=== PATIENT | female | born 1950 | race Caucasian/White ===

== ENCOUNTER → 2016-12-28 | Outpatient (CLI) | payer OTHER ==
[2014-02-10 18:17] VITALS: BP 127/75
--- NOTE | 2016-12-29 09:20 | MG ---
HISTORY: SCREENING Comparison: 10/05/2011, 06/10/2010 FINDINGS: Bilateral CC and MLO projections of the right and left breast were obtained. Scattered fibroglandul ar tissue is seen to be present. There is a new small cluster of microcalcifications seen in the ce ntral right breast, middle depth on today's exam marked with arrows. This corresponding mass, jacquelyn ectural distortion is identified. No skin thickening or nipple retraction is appreciated. No patho logical lymphadenopathy can be identified. IMPRESSION: There is a small new cluster of microcalcifications seen in the central right breast, m iddle depth, on today's exam for which further evaluation with magnification views is recommended. ACR CATEGORY 0: Assessment incomplete; additional imaging is needed Diagnostic CAD was utilized and reviewed. * 0 (ZERO) - ASSESSMENT INCOMPLETE; ADDITIONAL IMAGING IS NEEDED. * 1/1 (ONE) - NEGATIVE. * 2/II (TWO) - BENIGN FINDINGS. * 3/III (THREE) - PROBABLY BENIGN FINDING; SHORT INTERVAL FOLLOW-UP SUGGESTED. * 4/IV (FOUR) - SUSPICIOUS ABNORMALITY; BIOPSY SHOULD BE CONSIDERED. * 5/V - HIGHLY SUSPICIOUS OF MALIGNANCY; BIOPSY SHOULD BE PERFORMED. A NEGATIVE X-RAY REPORT SHOULD NOT DELAY BIOPSY IF A DOMINANT OR CLINICALLY SUSPICIOUS MASS IS PRESENT; 4 TO 8 PERCENT OF CANCERS ARE NOT IDENTIFIED BY X-RAY. A NEG ATIVE REPORT MAY REINFORCE THE CLINICAL IMPRESSION. ADENOSIS AND DENSE BREASTS MAY OBSCURE AN UNDER LYING NEOPLASM. Reported By:
== END ==
LOC: RAD 10:30
PROVIDERS: ATTEND Nurse Practitioner Family
DX: Z12.31 Encounter for screening mammogram for malignant neoplasm of breast (principal)
CPT/HCPCS: 77067

== ENCOUNTER → 2017-01-10 | Outpatient (CLI) | payer OTHER ==
[2014-02-10 18:17] VITALS: BP 127/75
--- NOTE | 2017-01-11 13:22 | MG ---
HISTORY: Abnormal screening mammography with right breast microcalcifications Right breast digital diagnostic mammography with CAD. Comparison: Multiple priors dating back to 2009 FINDINGS: ML and spot magnification images of the right breast were obtained. Heterogeneously dense fibroglan dular tissue is seen to be present. There is no dominant suspicious mass or architectural distortio n. No skin thickening or nipple retraction is appreciated. There is a small grouping of predomina ntly monomorphic punctate microcalcifications in the central breast at mid depth just superior to th e plane of the nipple with a few amorphous forms favored to represent a calcifying fibroadenoma or f ibrocystic changes. There are additional groupings of pleomorphic microcalcifications in the posteri or inferior breast which appear superficial and are favored to represent a skin lesion. The patient was examined on January 11, 2017, and there are multiple foci of seborrheic keratosis along the inframam nakul fold and inferior breast the likely contributing to these probably benign skin microcalcificati ons. IMPRESSION: Probably benign right breast microcalcifications for which 6 month follow up right [address] st mammography is recommended. ACR CATEGORY 3 - probably benign findings; short interval followup suggested. Diagnostic CAD was utilized and reviewed. * 0 (ZERO) - ASSESSMENT INCOMPLETE; ADDITIONAL IMAGING IS NEEDED. * 1/1 (ONE) - NEGATIVE. * 2/II (TWO) - BENIGN FINDINGS. * 3/III (THREE) - PROBABLY BENIGN FINDING; SHORT INTERVAL FOLLOW-UP SUGGESTED. * 4/IV (FOUR) - SUSPICIOUS ABNORMALITY; BIOPSY SHOULD BE CONSIDERED. * 5/V (FIVE) - HIGHLY SUSPICIOUS OF MALIGNANCY; BIOPSY SHOULD BE PERFORMED. A NEGATIVE X-RAY REPORT SHOULD NOT DELAY BIOPSY IF A DOMINANT OR CLINICALLY SUSPICIOUS MASS IS PRESENT; 4 TO 8 PERCENT OF CANCERS ARE NOT IDENTIFIED BY X-RAY. A NEG ATIVE REPORT MAY REINFORCE THE CLINICAL IMPRESSION. ADENOSIS AND DENSE BREASTS MAY OBSCURE AN UNDER LYING NEOPLASM. Reported By:
== END ==
LOC: RAD 12:14
PROVIDERS: ATTEND Nurse Practitioner Family
DX: R92.8 Other abnormal and inconclusive findings on diagnostic imaging of breast (principal)
CPT/HCPCS: 77065

== ENCOUNTER → 2017-07-25 | Outpatient (CLI) | payer OTHER ==
[2014-02-10 18:17] VITALS: BP 127/75
--- NOTE | 2017-07-25 14:48 | MG ---
HISTORY: Six-month follow-up right breast microcalcifications Right breast digital diagnostic mammography with CAD. Comparison: Multiple priors dating back to June 10, 2010 FINDINGS: ML, CC and MLO projections of the right breast were obtained. Scattered fibroglandular tissue is see n to be present without significant interval change. No new or developing suspicious architectural d istortion, mass or clustered microcalcifications can be observed to suggest malignancy. Previously d escribed probably benign microcalcifications are stable. Skin and vascular calcifications are again n oted as well. No skin thickening or nipple retraction is appreciated. No pathological lymphadenopat hy can be identified. IMPRESSION: Probably benign right breast microcalcifications for which an additional six-month follo w-up is recommended. The patient should undergo bilateral mammographic imaging at that time. ACR CATEGORY 3 - probably benign findings; short interval follow-up suggested. Diagnostic CAD was utilized and reviewed. * 0 (ZERO) - ASSESSMENT INCOMPLETE; ADDITIONAL IMAGING IS NEEDED. * 1/1 (ONE) - NEGATIVE. * 2/II (TWO) - BENIGN FINDINGS. * 3/III (THREE) - PROBABLY BENIGN FINDING; SHORT INTERVAL FOLLOW-UP SUGGESTED. * 4/IV (FOUR) - SUSPICIOUS ABNORMALITY; BIOPSY SHOULD BE CONSIDERED. * 5/V - HIGHLY SUSPICIOUS OF MALIGNANCY; BIOPSY SHOULD BE PERFORMED. A NEGATIVE X-RAY REPORT SHOULD NOT DELAY BIOPSY IF A DOMINANT OR CLINICALLY SUSPICIOUS MASS IS PRESENT; 4 TO 8 PERCENT OF CANCERS ARE NOT IDENTIFIED BY X-RAY. A NEGA TIVE REPORT MAY REINFORCE THE CLINICAL IMPRESSION. ADENOSIS AND DENSE BREASTS MAY OBSCURE AN UNDERLY ING NEOPLASM. Reported By:
== END ==
LOC: RAD 12:58
PROVIDERS: ATTEND Internal Medicine
DX: R92.8 Other abnormal and inconclusive findings on diagnostic imaging of breast (principal)
CPT/HCPCS: 77065